=== PATIENT | female | born 1980 | race African-American/Black ===

== ENCOUNTER 2016-12-09 22:08 | Emergency (ER) | payer MEDICARE ==
[~2016-12-09] VITALS: Ht 172.7 cm; Wt 48.0 kg
[2016-12-09] MEDS ORDERED: SODIUM CHLOR 0.9% 1000 ML INJ 1,000 ML IV SCH (22:33)
[2016-12-09 22:38] VITALS: BP 101/51; PULSE 83; RESP 18; TEMP 97.9; O2SAT 99
--- NOTE | 2016-12-09 22:45 | PD ---
HPI Chief Complaint: Alcohol/Drug Intoxication Time Seen by Provider: 22:39 Travel History International Travel<30 days: No Contact w/Intl Traveler<30days: No Traveled to known affect area: No History of Present Illness HPI 36-year-old female that presents to the ED for evaluation of possible substance abuse. Patient has a chronic history of MS. Patient takes medications for the MS as well as clonazepam a muscle relaxant. She took all her medications and apparently per patient and the father patient apparently took a "marijuana lollipop "that she's never had before. This was unbeknownst to the caregiver who is the father who is present here in the ED. She denies any alcohol or any other substance abuse. Per the father he found her somewhat nonresponsive. When the ambulance was called and they arrived patient was talking but acting hyper and bizarre. She denies ingesting anything else. I asked him multiple times if he was marijuana and they stated that it was. She denies taking any other her medications. She denies any pain of any kind. Per patient she feels very exhausted. She states "I feel happy". Denies any falls. No other injuries. No suicidal or homicidal ideation. [facility] Social History Alcohol Use: No Tobacco Use: No Substance Use: No (first time using pot today) Allergies-Medications (Allergen,Severity, Reaction): Coded Allergies: No Known Allergies (Unverified , 12/09/16) Review of Systems ROS Limitations: Intoxication Except as stated in HPI: all other systems reviewed are Neg Physical Exam Exam Limitations: Intoxication Narrative GENERAL: SKIN: Warm and dry. HEAD: Atraumatic. Normocephalic. EYES: Pupils equal and round. No scleral icterus. No injection or drainage. ENT: No nasal bleeding or discharge. Mucous membranes pink and moist. Tongue is midline. No uvula deviation. NECK: Trachea midline. No JVD. CARDIOVASCULAR: Regular rate and rhythm. No murmurs, S3, S4 RESPIRATORY: No accessory muscle use. Clear to auscultation. Breath sounds equal bilaterally. GASTROINTESTINAL: Abdomen soft, non-tender, nondistended. Hepatic and splenic margins not palpable. MUSCULOSKELETAL: Extremities without clubbing, cyanosis, or edema. No obvious deformities. Full range of motion of the upper and lower extremities bilaterally. 2+ bilaterally. NEUROLOGICAL: Awake and alert. No obvious cranial nerve deficits. Motor grossly within normal limits. Five out of 5 muscle strength in the arms and legs. Normal speech. PSYCHIATRIC: Intoxicated mood and affect; insight and judgment normal. Data Data Orders Complete Blood Count With Diff (12/09/16 22:20) Comprehensive Metabolic Panel (12/09/16 22:20) Urinalysis - C+S If Indicated (12/09/16 22:20) Iv Access Insert/Monitor (12/09/16 22:20) Drug Screen, Random Urine (12/09/16 22:20) Alcohol (Ethanol) (12/09/16 22:20) Salicylates (Aspirin) (12/09/16 22:20) Tylenol (Acetaminophen) (12/09/16 22:20) Sodium Chlor 0.9% 1000 Ml Inj (Ns 1000 M (12/09/16 22:33) MDM Medical Decision Making Medical Screen Exam Complete: Yes Emergency Medical Condition: Yes Medical Record Reviewed: Yes Differential Diagnosis Substance abuse versus acute intoxication versus altered mental status Narrative Course 36-year-old female that presents to the ED for evaluation of possible substance intoxication. Patient was properly examined and was found to have signs and symptoms consistent appears to intoxication likely from marijuana. She's never had this before. She appears to be a first. No sign of acute at this time. I do recommend doing labs and drug screen. Other is at bedside and agrees with this plan. Patient was given IV fluids. Case will be signed out to my attending pending labs and disposition. Aashish Jesus December 09, 2016 22:45
[2016-12-09] MEDS ORDERED: VITA500030 CHEW (22:49)
[2016-12-09] MEDS ORDERED: PRIS100T PO (22:49)
[2016-12-09] MEDS ORDERED: DESV1TAB PO (22:49)
[2016-12-09] MEDS ORDERED: VITA100021 SL (22:49)
[2016-12-09] MEDS ORDERED: CLON1TAB PO (22:49)
[2016-12-09] MEDS ORDERED: TIZA2CAP3 PO (22:49)
--- NOTE | 2016-12-09 22:56 | PD ---
Physical Exam Narrative General: The patient is a well-developed well-nourished female in no acute distress, drowsy on arrival although easily awakened and able to answer question. Head and Neck exam: Head is normocephalic atraumatic. Eyes: EOMI, pupils are equal round and reactive to light. Pupils are 4 mm bilaterally and reactive to light. Nose: Midline septum with pink mucous membranes Mouth: Dentition unremarkable. Moist mucus membranes. Posterior oropharynx is not erythematous. No tonsillar hypertrophy. Uvula midline. Airway patent. Neck: No palpable lymphadenopathy. No nuchal rigidity. No thyromegaly. Cardiovascular: Regular rate and rhythm without murmurs, gallops, or rubs. Lungs: Clear to auscultation bilaterally. No wheezes, rhonchi, or rales. Abdomen: Soft, without tenderness to palpation in all 4 quadrants of the abdomen. No guarding, rebound, or rigidity. Normal bowel sounds are audible. Extremities: No clubbing, cyanosis, or edema. No calf tenderness on palpation. Back: No spinous process tenderness to palpation. No costovertebral angle tenderness to palpation. Neurologic Exam: Grossly nonfocal. Skin Exam: No rash noted. Intact skin that is warm and dry. Data Data Last Documented VS Vital Signs Date Time Temp Pulse Resp B/P Pulse Ox O2 Delivery O2 Flow Rate FiO2 12/10/16 00:09 75 18 101/62 99 Room Air 12/09/16 22:38 97.9 Orders Complete Blood Count With Diff (12/09/16 22:20) Comprehensive Metabolic Panel (12/09/16 22:20) Urinalysis - C+S If Indicated (12/09/16 22:20) Iv Access Insert/Monitor (12/09/16 22:20) Drug Screen, Random Urine (12/09/16 22:20) Alcohol (Ethanol) (12/09/16 22:20) Salicylates (Aspirin) (12/09/16 22:20) Tylenol (Acetaminophen) (12/09/16 22:20) Sodium Chlor 0.9% 1000 Ml Inj (Ns 1000 M (12/09/16 22:33) Urine Culture (12/10/16 00:19) Ceftriaxone Inj (Rocephin Inj) (12/10/16 01:15) Labs Laboratory Tests Test 12/09/16 12/10/16 22:50 00:19 Sodium Level 143 MEQ/L Potassium Level 3.8 MEQ/L Chloride Level 107 MEQ/L Carbon Dioxide Level 31.2 MEQ/L Anion Gap 5 MEQ/L Blood Urea Nitrogen 15 MG/DL Creatinine 0.76 MG/DL Estimat Glomerular Filtration 104 ML/MIN Rate Random Glucose 93 MG/DL Calcium Level 8.7 MG/DL Total Bilirubin 0.3 MG/DL Aspartate Amino Transf 11 U/L (AST/SGOT) Alanine Aminotransferase 14 U/L (ALT/SGPT) Alkaline Phosphatase 57 U/L Total Protein 7.0 GM/DL Albumin 3.9 GM/DL Salicylates Level LESS THAN 1.7 MG/DL Acetaminophen Level LESS THAN 2.0 MCG/ML Ethyl Alcohol Level LESS THAN 3 MG/DL White Blood Count 6.2 TH/MM3 Red Blood Count 3.76 MIL/MM3 Hemoglobin 12.0 GM/DL Hematocrit 36.0 % Mean Corpuscular Volume 96.0 FL Mean Corpuscular Hemoglobin 32.1 PG Mean Corpuscular Hemoglobin 33.4 % Concent Red Cell Distribution Width 12.5 % Platelet Count 206 TH/MM3 Mean Platelet Volume 8.7 FL Neutrophils (%) (Auto) 50.6 % Lymphocytes (%) (Auto) 35.6 % Monocytes (%) (Auto) 9.5 % Eosinophils (%) (Auto) 3.4 % Basophils (%) (Auto) 0.9 % Neutrophils # (Auto) 3.1 TH/MM3 Lymphocytes # (Auto) 2.2 TH/MM3 Monocytes # (Auto) 0.6 TH/MM3 Eosinophils # (Auto) 0.2 TH/MM3 Basophils # (Auto) 0.1 TH/MM3 CBC Comment DIFF FINAL Differential Comment Urine Color YELLOW Urine Turbidity HAZY Urine pH 7.0 Urine Specific [place] 1.022 Urine Protein NEG mg/dL Urine Glucose (UA) NEG mg/dL Urine Ketones NEG mg/dL Urine Occult Blood SMALL Urine Nitrite NEG Urine Bilirubin NEG Urine Urobilinogen 2.0 MG/DL Urine Leukocyte Esterase MOD Urine RBC 16 /hpf Urine WBC 12 /hpf Urine Squamous Epithelial 1 /hpf Cells Urine Transitional Epithelial <1 /hpf Cells Urine Bacteria FEW /hpf Urine Mucus FEW /lpf Microscopic Urinalysis Comment CULTURE INDICATED Urine Opiates Screen NEG Urine Barbiturates Screen NEG Urine Amphetamines Screen NEG Urine Benzodiazepines Screen NEG Urine Cocaine Screen NEG Urine Cannabinoids Screen POS [facility] Medical Record Reviewed: Yes Supervised Visit with ARIAN: No Narrative Course During the course of the patients emergency department visit, the patients history, examination, and differential diagnosis were reviewed with the patient. The patient had IV access obtained and blood work sent for analysis. The patient's case was checked out to me by Aashish, the physician internal medicine physician assistant. Please see his complete history and physical. The patient was initially provided normal saline 1 L IV fluid bolus. The patients laboratory studies were reviewed and remarkable for CBC unremarkable, CMP unremarkable, urine drug screen positive for cannabinoid, acetaminophen less than 2, salicylate less than 1.7, alcohol level less than 3, urinalysis shows small occult blood, 16 RBCs, 12 WBCs, few bacteria, culture indicated. This is a catheterized urine. The patient was given Rocephin 1 g IV. The patient on reexamination continues to be easily arousable but drowsy on examination. The patient has family members at the bedside. The patient's family reports that they will be able to monitor the patient through the evening. I suspect that the patient's altered mentation is related to the cannabinoid lollipop that she ingested. She was instructed to avoid this in the future. The patient was instructed to continue on antibiotic for a urinary tract infection. She was given a prescription for Bactrim DS at discharge. The patient is resting comfortably and feels better, is alert and in no distress. The patients results and examination findings were discussed with the patient. The repeat examination is unremarkable and benign. The history, exam, diagnostic testing, and current condition do not suggest any significant pathology to warrant further testing, continued ED treatment, admission, or surgical evaluation at this point. The vital signs have been stable. The patient does not have uncontrollable pain, intractable vomiting, or other significant symptoms. The patient's condition is stable and appropriate for discharge. The patient will pursue further outpatient evaluation with a primary care physician or other designated or consulting physician as indicated in the discharge instructions. The patient expressed understanding and was agreeable with this plan. Diagnosis Primary Impression: Altered mental state Qualified Code: R41.0 - Disorientation Additional Impressions: Marijuana use Urinary tract infection Qualified Code: N30.00 - Acute cystitis without hematuria Referrals: Primary Care Physician 3 days Patient Instructions: General Instructions, Urinary Tract Infection in Women ( ED) Med/Other Pt SpecificInfo: Prescription(s) given Scripts Sulfamethoxazole-Trimethoprim (Bactrim DS)800-160 Mg Tab1 Tab PO BID #14 TAB Ref 0 Prov:Glenny Paredes MD 12/10/16 Disposition: 01 DISCHARGE HOME Condition: Stable Glenny Paredes MD December 09, 2016 22:56
[2016-12-09 23:01] LABS: AUTOMATED NEUTROPHIL # 3.1 TH/MM3 (1.8-7.7); BASOPHIL # 0.1 TH/MM3 (0-0.2); BASOPHIL % 0.9 % (0.0-2.0); EOSINOPHIL # 0.2 TH/MM3 (0-0.4); EOSINOPHIL % 3.4 % (0.0-4.0); HEMO FLAGS DIFF FINAL; LYMPH % 35.6 % (9.0-44.0); LYMPHOCYTE # 2.2 TH/MM3 (1.0-4.8); MEAN CORPUSCULAR HEMOGLOBIN 32.1 PG (27.0-34.0); MEAN CORPUSCULAR HGB CONC 33.4 % (32.0-36.0); MONO % 9.5 % (0.0-8.0); NEUT % 50.6 % (16.0-70.0); PLATELET COUNT 206 TH/MM3 (150-450); RED BLOOD COUNT 3.76 MIL/MM3 (4.00-5.30); RED CELL DISTRIBUTION WIDTH 12.5 % (11.6-17.2); WHITE BLOOD COUNT 6.2 TH/MM3 (4.0-11.0)
[2016-12-09 23:30] LABS: ALT (GPT) 14 U/L (10-53); ANION GAP 5 MEQ/L (5-15); AST (GOT) 11 U/L (15-37); BICARBONATE 31.2 MEQ/L (21.0-32.0); BLOOD UREA NITROGEN 15 MG/DL (7-18); CHLORIDE 107 MEQ/L (98-107); GLOMERULAR FILTRATION RATE 104 ML/MIN (>89); POTASSIUM 3.8 MEQ/L (3.5-5.1); SODIUM (NA) 143 MEQ/L (136-145)
[2016-12-09 23:33] LABS: ACETAMINOPHEN LESS THAN 2.0 MCG/ML (10.0-30.0); ALKALINE PHOSPHATASE 57 U/L (45-117); TOTAL BILIRUBIN ADULT 0.3 MG/DL (0.2-1.0)
[2016-12-10 00:09] VITALS: BP 101/62; PULSE 75; RESP 18; O2SAT 99
[2016-12-10 00:45] LABS: BACTERIA, URINE FEW /hpf; BLOOD, URINE SMALL (NEG); COMMENT (UR) CULTURE INDICATED; CULTURE IF INDICATED CULTURE INDICATED; GLUCOSE,URINE NEG (NEG); KETONE, URINE NEG (NEG); MUCUS URINE FEW /lpf (OCC); NITRITE,URINE NEG (NEG); SQUAMOUS EPITHELIAL CELL URINE 1 /hpf (0-5); TRANSITIONAL EPI CELLS, URINE <1 /hpf; URINE COLOR YELLOW (YELLW/STRAW)
[2016-12-10 00:47] LABS: AMPHETAMINE, URINE NEG (NEG); BARBITURATES, URINE NEG (NEG); COCAINE, URINE NEG (NEG)
[2016-12-10] MEDS ORDERED: BACT800T5 PO (01:07)
[2016-12-10] MEDS ORDERED: cefTRIAXone INJ 1,000 MG in SODIUM CHLORIDE 0.9% INJ 100 ML IV ONE (01:15)
== END 2016-12-10 02:03 | disposition home or self-care (01) ==
LOC: NEPE 22:08
DX: R41.0 Disorientation, unspecified (principal); N30.00 Acute cystitis without hematuria; B96.89 Other specified bacterial agents as the cause of diseases classified elsewhere; F12.90 Cannabis use, unspecified, uncomplicated; Z79.899 Other long term (current) drug therapy
CPT/HCPCS: 80053; 80307; 81001; 85025; 87086; 96374; 99284; J0696; J7030